=== PATIENT | male | born 1975 ===

== ENCOUNTER 2016-02-25 23:23 | Emergency (ER) | payer OTHER, SELFPAY ==
[2016-02-25] MEDS ORDERED: Ketorolac Tromethamine 30 MG/ML VIAL ONE (23:37)
[2016-02-25 23:57] LABS: Red Blood Cell (RBC) Count 5.22 mill/uL (4.70-6.10)
[2016-02-26 00:03] LABS: Anion Gap 16 mmol/L (10-20); BUN (Urea Nitrogen) 14 mg/dL (8.9-20.6); Calc. Creatinine Clearance 0 mL/min (70-130); Calcium 9.7 mg/dL (7.8-10.44); Carbon Dioxide 25 mmol/L (22-29); Chloride 106 mmol/L (98-107); Estimated GFR-MDRD Greater than 90
[2016-02-26 00:04] LABS: Acetaminophen Less than 3.0 mcg/mL (10.0-30.0); Salicylate Less than 5.0 mg/dL (15.0-30.0)
[2016-02-26 00:21] LABS: Neutrophil 34 % (42-75)
[2016-02-26 01:33] LABS: Blood, Urine Negative (Negative); Glucose, Urine (Dipstick) Negative (Negative); Ketone, Urine Trace mg/dL (Negative); Nitrite Negative (Negative); Protein, Urine (Dipstick) 30 mg/dL (Neg-Trace); Urobilinogen 0.2 mg/dL (0.2-1.0)
[2016-02-26 01:34] LABS: Bilirubin Negative (Negative)
[2016-02-26 01:40] LABS: Methadone Not Detected (NotDetected); Methamphetamine Not Detected (NotDetected)
[2016-02-26 01:44] LABS: RBC/HPF None Seen HPF (0-3); Squamous Epithelial 0-3 HPF (0-3); WBC/HPF 0-3 HPF (0-3)
--- NOTE | 2016-02-26 02:50 | ERRECORD ---
[facility] EMERGENCY RECORD HPI ALCOHOL ABUSE/SUBSTANCE ABUSE (23:29 RW) CHIEF COMPLAINT: Patient presents for evaluation of inappropriate behavior, found by police, Patient presents for evaluation of "unresponsive sitting in car". HISTORIAN: History provided by patient, Additional history obtained from EMS, Pt states "I had a seizure". appears heavily sedated, requesting pain meds. ?ETOH on board. LOCATION: Symptoms are generalized. QUALITY: Unable to describe the quality of the pain. SEVERITY: Maximum severity of symptoms mild, Currently symptoms are mild, Maximum severity of pain rated as 9/10, Current severity of pain rated as 9/10. GCS: Eye opening: (4) - Spontaneous, Verbal: (5) - Oriented/conversive, Motor: (6) - Obeys commands/Spontaneous, GCS Total: 15. TIME COURSE: Patient unable to describe onset of symptoms, Symptoms are improving. CONTRIBUTING: depression, [facility]", many are sedatives and psychotropics. ASSOCIATED WITH: Denies any other complaints. EXACERBATED BY: Patient's condition exacerbated by alcohol abuse, Patient's condition exacerbated by financial issues, Patient's condition exacerbated by personal problems, Patient's condition exacerbated by homeless. RELIEVED BY: Patient's condition relieved by nothing. E/M CAVEAT: Emergency room caveat invoked due to intoxicated patient. ROS (23:33 [facility]) CONSTITUTIONAL: Negative constitutional review of systems. EYES: Negative eye review of systems. ENT: Negative ears, nose, throat review of systems. CARDIOVASCULAR: Negative cardiovascular review of systems. RESPIRATORY: Negative respiratory review of systems. GI: Negative gastrointestinal review of systems. GENITOURINARY MALE: Negative genitourinary review of systems. MUSCULOSKELETAL: Historian reports arthralgias, Hx "Ankylosing Spondylitis". SKIN: Historian reports skin lesions, ?track rocha on arms. NEUROLOGIC: Historian reports lethargy. ENDOCRINE: Negative endocrine review of systems. HEMO/LYMPHATIC: Normal hematologic/lymphatic system review. ALLERGIC/IMMUNOLOGIC: Normal allergy/immunologic system review. PSYCHIATRIC: Historian reports alcohol abuse, reports anxiety, reports depression, reports drug abuse, denies emotional lability, denies hallucinations, denies homicidal ideation, denies memory loss, denies suicidal ideation. NOTES: All systems reviewed, negative except as described above. &a-1R&a+25V*p+0X*[id number]*c202B*c15G*c2P*p-0X&a-25V&a+1R Name: Ayah Hill : 1975 M40 MedRec: [id number] AcctNum: [id number] Prepared: TueFeb 26, 2016 05:46 by Interface Page 1 of 3 pMD [facility] EMERGENCY RECORD PAST MEDICAL HISTORY MEDICAL HISTORY: Notes: Sargent's Disease, Migraines, Seizures, Chronic pain, "spinalitus", Flu vaccine not up to date, Tetanus not up to date, Past medical history includes history of hypertension. 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 (23:27 PGRI) PSYCHIATRIC HISTORY: Psychiatric history includes, anxiety, bipolar disorder, depression. (23:27 PGRI) SOCIAL HISTORY: Social History includes PATIENT DENIES BUT FREQ DROWSY AND TRACK ROCHA SEEN ON PATIENTS ARMS AND LEGS. (TueFeb 26, 2016 00:59 PGRI) KNOWN ALLERGIES No Known Allergies CURRENT MEDICATIONS No recorded medications VITAL SIGNS VITAL SIGNS: BP: 131/93, Pulse: 105, Resp: 18 (Non-Labored), Temp: 97.6 (Axillary), Pain: 9, O2 sat: 98 on Room Air, Time: 02/25/2016 23:25. (23:25 PGRI) BP: 105/70, Pulse: 77, Resp: 15, O2 sat: 99 on Room Air, Time: 02/26/2016 00:40. (TueFeb 26, 2016 00:40 PGRI) BP: 116/75, Pulse: 93, Resp: 14, Pain: sleeping, O2 sat: 99 on Room Air, Time: 02/26/2016 02:04. (TueFeb 26, 2016 02:04 PGRI) PHYSICAL EXAM (23:35 RWAG) CONSTITUTIONAL: Vital signs reviewed, Patient alert and oriented to person, place and time. HEAD: Head exam normal. EYES: Eye exam included findings of eyelids normal to inspection, Pupils not equally round and reactive to light, pupils equal,small, sluggish, appears narcotized. NECK: Neck exam normal. RESPIRATORY CHEST: Respiratory and chest exam normal. CARDIOVASCULAR: Cardiovascular assessment normal. ABDOMEN MALE: Abdominal exam normal. GENITOURINARY MALE: External genitalia normal. BACK: Back exam normal. UPPER EXTREMITY: Upper extremity exam normal. LOWER EXTREMITY: Lower extremity exam normal. NEURO: [place] coma scale 15, Neuro exam findings include patient oriented to person, place and time. SKIN: ? track rocha on arms ?skin popping. LYMPHATIC: Lymphatic exam normal. &a-1R&a+25V*p+0X*[id number]*c202B*c15G*c2P*p-0X&a-25V&a+1R Name: Ayah Hill : 1975 M40 MedRec: [id number] AcctNum: [id number] Prepared: TueFeb 26, 2016 05:46 by Interface Page 2 of 3 pMD [facility] EMERGENCY RECORD PSYCHIATRIC: Psychiatric exam included findings of patient oriented to person place and time, No suicidal ideations, No homicidal ideations. MEDICATION ADMINISTRATION SUMMARY Drug Name: ketorolac injection, Dose Ordered: 30 mg, Route: IV Push, Status: Held, Time: 00:09 02/26/2016, Drug Name: *sodium chloride 0.9 % intravenous, Dose Ordered: 1 L, Route: IV Fluid Infusion, Status: Given, Time: 00:07 02/26/2016, *Additional information available in notes, Detailed record available in Medication Service section. PROBLEM LIST No recorded problems DIAGNOSIS (TueFeb 26, 2016 02:07 RW) FINAL: PRIMARY: methamphetamine abuse. PRESCRIPTION No recorded prescriptions DISPOSITION PATIENT: Disposition Type: Discharge, Disposition: *Discharge Home, Disposition Transport: Car, Condition: Improved. (TueFeb 26, 2016 02:07 RWAG) Patient left the department. (TueFeb 26, 2016 02:43 MVIL) Johnson: DENISEIL=PEDRO Ball, Claire SUTHERLANDI=PEDRO Shrestha, Nery RWAG=MD Griffin, Kyle &a-1R&a+25V*p+0X*[id number]*c202B*c15G*c2P*p-0X&a-25V&a+1R Name: Ayah Hill : 1975 M40 MedRec: [id number] AcctNum: [id number] Prepared: Nicole Feb 26, 2016 05:46 by Interface Page 3 of 3 pMD MTDD
--- NOTE | 2016-02-26 03:02 | PICIS ---
[facility] EMERGENCY RECORD TRIAGE (TueFeb 25, 2016 23:25 PGRI) TRIAGE NOTES: Patient states "conscious seizure" at [facility] after falling asleep. Hx of PTSD and chronic pain. (TueFeb 25, 2016 23:25 PGRI) PATIENT: NAME: Ayah Hill, AGE: 40, GENDER: male, : Tue1975, TIME OF GREET: TueFeb 25, 2016 23:24, PREFERRED LANGUAGE: Czech, ECODE BILLING MAP: [facility], Zip Code: [address], KG WEIGHT: 77.11, , , PERSON ID: [id number], PCP: CORTNEY. (TueFeb 25, 2016 23:25 PGRI) PHONE: . (TueFeb 26, 2016 00:24) PAYMENT: [employer] Program. (TueFeb 26, 2016 00:37) COMPLAINT: Seizure. (TueFeb 25, 2016 23:25 PGRI) ADMISSION: URGENCY: 3 Urgent, ADMISSION SOURCE: Other, TRANSPORT: AMBULANCE - [facility], BED: TRIAGE. (TueFeb 25, 2016 23:25 PGRI) PROVIDERS: TRIAGE NURSE: Nery Shrestha RN. (TueFeb 25, 2016 23:25 PGRI) VITAL SIGNS: BP 131/93, Pulse 105, Resp 18, (Non-Labored), Temp 97.6, (Axillary), Pain 9, O2 Sat 98, on Room Air, Time 02/25/2016 23:25. (23:25 PGRI) KNOWN ALLERGIES No Known Allergies CURRENT MEDICATIONS No recorded medications VITAL SIGNS VITAL SIGNS: BP: 131/93, Pulse: 105, Resp: 18 (Non-Labored), Temp: 97.6 (Axillary), Pain: 9, O2 sat: 98 on Room Air, Time: 02/25/2016 23:25. (23:25 PGRI) BP: 105/70, Pulse: 77, Resp: 15, O2 sat: 99 on Room Air, Time: 02/26/2016 00:40. (TueFeb 26, 2016 00:40 PGRI) BP: 116/75, Pulse: 93, Resp: 14, Pain: sleeping, O2 sat: 99 on Room Air, Time: 02/26/2016 02:04. (TueFeb 26, 2016 02:04 PGRI) NURSING ASSESSMENT: SEIZURE (TueFeb 26, 2016 00:13 MVIL) NURSING DIAGNOSIS: Nursing diagnosis: SEIZURE, Notes: PER EMS, EMS WAS CALLED BY POLICE. REPORTED THAT PATIENT WAS UNRESPONSIVE IN HIS CAR. WHEN PATIENT WOKE, HE STATED HE HAD A SEIZURE. CONSTITUTIONAL: Patient arrives, via stretcher, via [facility], Unsteady gait, Inability to ambulate, History obtained from patient, Patient appears comfortable, Patient cooperative, Patient, responsive to verbal stimuli, Oriented to person, place and time, Skin warm, Skin dry, Skin normal in color, Mucous membranes pink, Mucous membranes moist, Patient, poorly groomed, with poor personal hygiene, improperly dressed for the weather, Patient complains of UNRESPONSIVE. &a-1R&a+25V*p+0X*w9124V*c202B*c15G*c2P*p-0X&a-25V&a+1R Name: Ayah Hill : 1975 M40 MedRec: [id number] AcctNum: [id number] Prepared: TueFeb 26, 2016 05:51 by Interface Page 1 of 9 pMD [facility] EMERGENCY RECORD SEIZURE: Seizure assessment findings include patient not actively seizing, Patient not post-ictal currently, History of seizures, Notes: LAST SEIZURE WAS 6YRS AGO. SAFETY: Side rails up, Cart/Stretcher in lowest position, Call light within reach, Hospital ID band on. NURSING PROCEDURE: DISCHARGE NOTE (TueFeb 26, 2016 02:26 MVIL) DISCHARGE: Patient discharged to home, ambulating without assistance, transported via police, accompanied by law enforcement, Summary of Care printed/ provided, Patient requested and was provided an electronic copy of Discharge Instructions, Transition record given to patient, Discharge instructions given to patient, Above person(s) verbalized understanding of discharge instructions and follow-up care. BELONGINGS: Belongings and valuables with patient at time of discharge include:. NURSING PROCEDURE: IV (TueFeb 26, 2016 00:09 MVIL) PATIENT IDENITIFIER: Patient actively involved in identification process, Patient's identity verified by patient stating name, Patient's identity verified by hospital ID bracelet. IV SITE 1: IV therapy indicated for hydration, IV therapy indicated for medication administration, IV established, to the left foot, using a 20 gauge catheter, in three attempts, Saline lock established, Flushed with normal saline (mls): 10, Labs drawn at time of placement, labeled in the presence of the patient and sent to lab. FOLLOW-UP SITE 1: After procedure, IV line connections checked and properly labeled, After procedure, no drainage at IV site, After procedure, no swelling at IV site, After procedure, no redness at IV site. NURSING PROCEDURE: NURSE NOTES NURSES NOTES: Notes: patient sleeping in bed at this time. holding pain medication now. RR even and unlabored. (TueFeb 26, 2016 00:31 PGRI) Notes: pt resting in bed RR even and unlabored. all needs met at this time. awaiting disposition from [facility]. (TueFeb 26, 2016 01:42 PGRI) Notes: ems states to call [facility] [phone] ext [phone] when patient is to be discharged in order for them to pick him up. (TueFeb 26, 2016 00:15 PGRI) Notes: patient will be discharged. called phone number and [facility] Bob to come pick patient up at this time. pt still resting in bed RR even and unlabored. easily aroused. (TueFeb 26, 2016 02:18 PGRI) NURSING PROCEDURE: URINE COLLECTION (TueFeb 26, 2016 01:16 PGRI) PATIENT IDENTIFIER: Patient actively involved in identification process, Patient's identity verified by patient stating name, Patient's identity verified by patient stating date. &a-1R&a+25V*p+0X*c6445Q*c202B*c15G*c2P*p-0X&a-25V&a+1R Name: Ayah Hill : 1975 M40 MedRec: [id number] AcctNum: [id number] Prepared: TueFeb 26, 2016 05:51 by Interface Page 2 of 9 pMD [facility] EMERGENCY RECORD URINE COLLECTION MALE: Urine collected by void, output amount (mL) 50, urine timothy in color, and clear, Specimen labeled in the presence of the patient and sent to lab, Specimen obtained for culture labeled in the presence of the patient and sent to lab. SAFETY: Side rails up, Cart/Stretcher in lowest position, Family at bedside, Call light within reach, Hospital ID band on. ORDER DETAILS Order Name: Alcohol, Status: Active, Time: 23:29 02/25/2016, User: SAUNDRA, - Ordered for: MD Moya Richard, - Entered by: MD Moya Richard - TueFeb 25, 2016 23:29, - Quantity: 1, Order Name: Basic Metabolic Panel, Status: Active, Time: 23:27 02/25/2016, User: SAUNDRA, - Ordered for: MD Moya Richard, - Entered by: MD Moya Richard - TueFeb 25, 2016 23:27, - Quantity: 1, Order Name: CBC with Differential, Status: Active, Time: 23:27 02/25/2016, User: SAUNDRA, - Ordered for: MD Moya Richard, - Entered by: MD Griffin, Kyle - TueFeb 25, 2016 23:27, - Quantity: 1, Order Name: Drug Screen, Serum, Status: Active, Time: 23:27 02/25/2016, User: SAUNDRA, - Ordered for: MD Moya Richard, - Entered by: MD Griffin, Kyle - TueFeb 25, 2016 23:27, - Quantity: 1, Order Name: Drug Screen, Urine, Status: Active, Time: 23:27 02/25/2016, User: SAUNDRA, - Ordered for: MD Moya Richard, - Entered by: MD Griffin, Kyle - TueFeb 25, 2016 23:27, - Quantity: 1, Order Name: SALINE LOCK, Status: Done, Time: 00:09 02/26/2016, User: MENG, - Ordered for: MD Moya Richard, - Entered by: MD Moya Richard - TueFeb 25, 2016 23:27, - Quantity: 1, Order Name: Urinalysis w/ Rflx Microscopic, Status: Active, Time: 23:27 02/25/2016, User: SAUNDRA, - Ordered for: MD Moya Richard, - Entered by: MD Moya Richard - TueFeb 25, 2016 23:27, - Quantity: 1. MEDICATION ADMINISTRATION SUMMARY Drug Name: ketorolac injection, Dose Ordered: 30 mg, Route: IV Push, Status: Held, Time: 00:09 02/26/2016, Drug Name: *sodium chloride 0.9 % intravenous, Dose Ordered: 1 L, &a-1R&a+25V*p+0X*c0192G*c202B*c15G*c2P*p-0X&a-25V&a+1R Name: Ayah Hill : 1975 M40 MedRec: [id number] AcctNum: [id number] Prepared: TueFeb 26, 2016 05:51 by Interface Page 3 of 9 pMD [facility] EMERGENCY RECORD Route: IV Fluid Infusion, Status: Given, Time: 00:07 02/26/2016, *Additional information available in notes, Detailed record available in Medication Service section. MEDICATION SERVICE ketorolac injection: Order: ketorolac injection (ketorolac tromethamine) - Dose: 30 mg : IV Push Schedule: Now Ordered by: Kyle Moya MD Entered by: Kyle Moya MD [facility] Feb 25, 2016 23:28 , Acknowledged by: Nery Shrestha RN TueFeb 25, 2016 23:36, Held by: Nery Shrestha RN [facility] Feb 26, 2016 00:09 Reason: PATIENT ASLEEP. sodium chloride 0.9 % intravenous: Order: sodium chloride 0.9 % intravenous (0.9 % sodium chloride) - Dose: 1 L : IV Fluid Infusion Schedule: Now Notes: (Bolus) Ordered by: Kyle Moya MD Entered by: Kyle Moya MD TueFeb 25, 2016 23:27 , Acknowledged by: Nery Shrestha RN TueFeb 25, 2016 23:27 Documented as given by: Nery Shrestha RN [facility] Feb 26, 2016 00:07 Patient, Medication, Dose, Route and Time verified prior to administration. IV SITE #1 IV fluids established for hydration, IV SITE #1 into left foot, IV SITE #1 1st bag hung, amount 1 Liter hung, IV SITE #1 bolus of 1000 ml established, via primary tubing, via pump tubing, Slightly drowsey, easily aroused-acceptable, Catheter placement confirmed via flush prior to administration, IV site without signs or symptoms of infiltration during medication administration, No swelling during administration, No drainage during administration, IV flushed after administration, Correct patient, time, route, dose and medication confirmed prior to administration, Patient advised of actions and side-effects prior to administration, Allergies confirmed and medications reviewed prior to administration, Patient in position of comfort, Side rails up, Cart in lowest position, Family at bedside, Call light in reach. : Follow Up : Response assessment performed, No signs or symptoms of allergic reaction noted, _IV SITE #1:_, IV fluid infusion discontinued, on TueFeb 26, 2016 01:00, 55 minutes, ., Total amount infused: 1000ml, Advised not to ambulate without assistance, Patient in position of comfort, Side rails up, Cart in lowest position, Family at bedside. (TueFeb 26, 2016 01:20 PGRI) HPI ALCOHOL ABUSE/SUBSTANCE ABUSE (23:29 RW) CHIEF COMPLAINT: Patient presents for evaluation of inappropriate behavior, found by police, Patient presents for evaluation of "unresponsive sitting in car". HISTORIAN: History provided by patient, Additional history obtained from EMS, Pt states "I had a seizure". &a-1R&a+25V*p+0X*n0002M*c202B*c15G*c2P*p-0X&a-25V&a+1R Name: Ayah Hill : 1975 M40 MedRec: [id number] AcctNum: [id number] Prepared: TueFeb 26, 2016 05:51 by Interface Page 4 of 9 pMD [facility] EMERGENCY RECORD appears heavily sedated, requesting pain meds. ?ETOH on board. LOCATION: Symptoms are generalized. QUALITY: Unable to describe the quality of the pain. SEVERITY: Maximum severity of symptoms mild, Currently symptoms are mild, Maximum severity of pain rated as 9/10, Current severity of pain rated as 9/10. GCS: Eye opening: (4) - Spontaneous, Verbal: (5) - Oriented/conversive, Motor: (6) - Obeys commands/Spontaneous, GCS Total: 15. TIME COURSE: Patient unable to describe onset of symptoms, Symptoms are improving. CONTRIBUTING: depression, [facility] many are sedatives and psychotropics. ASSOCIATED WITH: Denies any other complaints. EXACERBATED BY: Patient's condition exacerbated by alcohol abuse, Patient's condition exacerbated by financial issues, Patient's condition exacerbated by personal problems, Patient's condition exacerbated by homeless. RELIEVED BY: Patient's condition relieved by nothing. E/M CAVEAT: Emergency room caveat invoked due to intoxicated patient. ROS (23:33 RWAG) CONSTITUTIONAL: Negative constitutional review of systems. EYES: Negative eye review of systems. ENT: Negative ears, nose, throat review of systems. CARDIOVASCULAR: Negative cardiovascular review of systems. RESPIRATORY: Negative respiratory review of systems. GI: Negative gastrointestinal review of systems. GENITOURINARY MALE: Negative genitourinary review of systems. MUSCULOSKELETAL: Historian reports arthralgias, Hx "Ankylosing Spondylitis". SKIN: Historian reports skin lesions, ?track rocha on arms. NEUROLOGIC: Historian reports lethargy. ENDOCRINE: Negative endocrine review of systems. HEMO/LYMPHATIC: Normal hematologic/lymphatic system review. ALLERGIC/IMMUNOLOGIC: Normal allergy/immunologic system review. PSYCHIATRIC: Historian reports alcohol abuse, reports anxiety, reports depression, reports drug abuse, denies emotional lability, denies hallucinations, denies homicidal ideation, denies memory loss, denies suicidal ideation. NOTES: All systems reviewed, negative except as described above. PAST MEDICAL HISTORY MEDICAL HISTORY: Notes: [place]'s Disease, Migraines, Seizures, Chronic pain, "spinalitus", Flu vaccine not up to date, Tetanus not up to date, Past medical history includes history of hypertension. (23:27 PGRI) MALE SURGICAL HISTORY: Back surgery X2, Ankle sx, Head &a-1R&a+25V*p+0X*i3246K*c202B*c15G*c2P*p-0X&a-25V&a+1R Name: Ayah Hill : 1975 M40 MedRec: [id number] AcctNum: [id number] Prepared: TueFeb 26, 2016 05:51 by Interface Page 5 of 9 pMD [facility] EMERGENCY RECORD surgery, "something on my pituitary", Collar bone sx,, Surgical history of appendectomy, Surgical history of cholecystectomy. (23:27 PGRI) PSYCHIATRIC HISTORY: Psychiatric history includes, anxiety, bipolar disorder, depression. (23:27 PGRI) SOCIAL HISTORY: Social History includes PATIENT DENIES BUT FREQ DROWSY AND TRACK ROCHA SEEN ON PATIENTS ARMS AND LEGS. (TueFeb 26, 2016 00:59 PGRI) PHYSICAL EXAM (23:35 RWAG) CONSTITUTIONAL: Vital signs reviewed, Patient alert and oriented to person, place and time. HEAD: Head exam normal. EYES: Eye exam included findings of eyelids normal to inspection, Pupils not equally round and reactive to light, pupils equal,small, sluggish, appears narcotized. NECK: Neck exam normal. RESPIRATORY CHEST: Respiratory and chest exam normal. CARDIOVASCULAR: Cardiovascular assessment normal. ABDOMEN MALE: Abdominal exam normal. GENITOURINARY MALE: External genitalia normal. BACK: Back exam normal. UPPER EXTREMITY: Upper extremity exam normal. LOWER EXTREMITY: Lower extremity exam normal. NEURO: Nathalia coma scale 15, Neuro exam findings include patient oriented to person, place and time. SKIN: ? track rocha on arms ?skin popping. LYMPHATIC: Lymphatic exam normal. PSYCHIATRIC: Psychiatric exam included findings of patient oriented to person place and time, No suicidal ideations, No homicidal ideations. EVENTS TRANSFER: Triage to Emergency Triage. (23:25 PGRI) Emergency Triage to Emergency Room -04. (23:25 PGRI) Removed from Emergency Emergency Room -04. (TueFeb 26, 2016 02:43 MVIL) PROBLEM LIST No recorded problems DIAGNOSIS (TueFeb 26, 2016 02:07 RW) FINAL: PRIMARY: methamphetamine abuse. DISPOSITION PATIENT: Disposition Type: Discharge, Disposition: *Discharge Home, Disposition Transport: Car, Condition: Improved. (TueFeb 26, 2016 02:07 RWAG) Patient left the department. (TueFeb 26, 2016 02:43 MVIL) &a-1R&a+25V*p+0X*c6760C*c202B*c15G*c2P*p-0X&a-25V&a+1R Name: SergioAyah Maria Del Carmen : 1975 M40 MedRec: [id number] AcctNum: [id number] Prepared: TueFeb 26, 2016 05:51 by Interface Page 6 of 9 pMD [facility] EMERGENCY RECORD INSTRUCTION (TueFeb 26, 2016 02:08 RW) DISCHARGE: METHAMPHETAMINE ABUSE. FOLLOWUP: Follow up with Primary Care Physician in 5 days. SPECIAL: Follow-up with your PCP. PRESCRIPTION No recorded prescriptions IMAGING (TueFeb 26, 2016 02:25 MVIL) *DISCHARGE INSTRUCTIONS RECEIPT: Image captured from scanner. *SUPPLY CHARGE SHEET: Image captured from scanner. ADMIN (TueFeb 26, 2016 05:40 [facility]) DIGITAL SIGNATURE: MD Moya Richard. RESULTS LABORATORY: CBC with Differential Collection DT: TueFeb 25, 2016 23:46, White Blood Cell (WBC) Count 5.0 thou/uL, Range (4.8-10.8), Red Blood Cell (RBC) Count 5.22 mill/uL, Range (4.70-6.10), Hemoglobin 16.2 g/dL, Range (14.0-18.0), Hematocrit 49.0 %, Range (42.0-52.0), Mean Corpuscular Volume 94.0 fl, Range (80.0-94.0), Mean Corpuscular Hemoglobin 31.0 pg, Range (27.0-31.0), Mean Corpuscular HGB CONC 33.0 g/dL, Range (32.0-36.0), RBC Distribution Width 11.7 %, Range (11.5-14.5), Platelet Count 229 thou/uL, Range (130-400), *Mean Platelet Volume 6.0 - L fL, Range (7.4-10.4). (TueFeb 26, 2016 00:02 [facility]) Drug Screen, Blood Collection DT: TueFeb 25, 2016 23:46, *Acetaminophen Less than 3.0 - L mcg/mL, Range (10.0-30.0), Therapeutic Range: 10.0 - 30.0 ug/mL Toxic Range: Possible, toxicity: 150 - 200 ug/mL Probable toxicity: Greater than 200, ug/mL *IMPORTANT TESTING INFORMATION* The half-life of NAC is 2, hours. The total NAC clearance is 5.6 hours for adults and 11 hours for, Newborns. Testing acetaminophen levels prior to a reasonable time frame, for clearance can cause falsely decreased acetaminophen levels. , Alcohol Less than 10 mg/dL, Range (Less than 10), The pharmacological response to blood alcohol levels may vary from, individual to individual. Negative: Less than 10, mg/dL Toxic: 50 - 100 mg/dL &a-1R&a+25V*p+0X*n7630L*c202B*c15G*c2P*p-0X&a-25V&a+1R Name: Ayah Hill : 1975 M40 MedRec: [id number] AcctNum: [id number] Prepared: TueFeb 26, 2016 05:51 by Interface Page 7 of 9 pMD [facility] EMERGENCY RECORD , Depression of FURNITURE UPHOLSTERER APPRENTICE: Greater than 100 mg/dL , Fatalities reported: Greater than 400 mg/dL , *Salicylate Less than 5.0 - L mg/dL, Range (15.0-30.0). (TueFeb 26, 2016 00:11 RW) Alcohol Collection DT: TueFeb 25, 2016 23:46, Alcohol Less than 10 mg/dL, Range (Less than 10), The pharmacological response to blood alcohol levels may vary from, individual to individual. Negative: Less than 10, mg/dL Toxic: 50 - 100 mg/dL , Depression of FURNITURE UPHOLSTERER APPRENTICE: Greater than 100 mg/dL , Fatalities reported: Greater than 400 mg/dL . (TueFeb 26, 2016 00:11 RW) Basic Metabolic Panel Collection DT: TueFeb 25, 2016 23:46, Sodium 143 mmol/L, Range (136-145), Potassium 3.6 mmol/L, Range (3.5-5.1), Chloride 106 mmol/L, Range (98-107), Carbon Dioxide 25 mmol/L, Range (22-29), Anion Gap 16 mmol/L, Range (10-20), BUN (Urea Nitrogen) 14 mg/dL, Range (8.9-20.6), Creatinine 0.79 mg/dL, Range (0.7-1.3), Estimated GFR-MDRD Greater than 90 , Reference Range for Estimated GFR: Greater than 90, mL/min/1.73 m2 NOTE: The MDRD equation has not been validated for use, with the elderly (over 70 years of age), women, patients with, serious comorbid condition or persons with extremes of body size, muscle, mass, or nutritional status. , Glucose 82 mg/dL, Range (70-105), Calcium 9.7 mg/dL, Range (7.8-10.44). (TueFeb 26, 2016 00:11 RW) CBC with Differential Collection DT: TueFeb 25, 2016 23:46, White Blood Cell (WBC) Count 5.0 thou/uL, Range (4.8-10.8), Red Blood Cell (RBC) Count 5.22 mill/uL, Range (4.70-6.10), Hemoglobin 16.2 g/dL, Range (14.0-18.0), Hematocrit 49.0 %, Range (42.0-52.0), Mean Corpuscular Volume 94.0 fl, Range (80.0-94.0), Mean Corpuscular Hemoglobin 31.0 pg, Range (27.0-31.0), Mean Corpuscular HGB CONC 33.0 g/dL, Range (32.0-36.0), RBC Distribution Width 11.7 %, Range (11.5-14.5), Platelet Count 229 thou/uL, Range (130-400), &a-1R&a+25V*p+0X*i3671H*c202B*c15G*c2P*p-0X&a-25V&a+1R Name: Ayah Hill : 1975 10 MedRec: [id number] AcctNum: [id number] Prepared: TueFeb 26, 2016 05:51 by Interface Page 8 of 9 pMD [facility] EMERGENCY RECORD *Mean Platelet Volume 6.0 - L fL, Range (7.4-10.4), *Neutrophil 34 - L %, Range (42-75), *Lymphocytes 56 - H %, Range (21-51), Monocytes 5 %, Range (0-10), Eosinophils 5 %, Range (0-10), PLT Morphology Comment Appears Adequate , RBC Morphology Normal . (TueFeb 26, 2016 00:57 RWAG) Johnson: MVIL=PEDRO Ball, Claire PGRI=PEDRO Shrestha, Nery RWAG=MD Griffin, Kyle &a-1R&a+25V*p+0X*t6017B*c202B*c15G*c2P*p-0X&a-25V&a+1R Name: Ayah Hill : 1975 M40 MedRec: [id number] AcctNum: [id number] Prepared: TueFeb 26, 2016 05:51 by Interface Page 9 of 9 pMD [facility] MEDICATION RECONCILIATION You were seen in the Emergency Department on: TueFeb 25, 2016 KNOWN ALLERGIES No Known Allergies MEDICATIONS GIVEN WHILE IN THE EMERGENCY DEPARTMENT sodium chloride 0.9 % intravenous (0.9 % sodium chloride) - Dose: 1 liter(s) : IV Fluid Infusion Notes from the emergency department Reviewed with patient Reviewed with patient &a-1R&a+25V*p+0X*r1805R*c202B*c15G*c2P*p-0X&a-25V&a+1R Name: Ayah Hill : 1975 M40 MedRec: [id number] AcctNum: [id number] Prepared: TueFeb 26, 2016 05:51 by Interface Alvaro HERRERA
== END 2016-02-26 02:24 | disposition home or self-care (01) ==
LOC: BURERS 23:23
DX: F15.10 Other stimulant abuse, uncomplicated (principal); G43.909 Migraine, unspecified, not intractable, without status migrainosus; I10 Essential (primary) hypertension; F31.9 Bipolar disorder, unspecified; F32.9 Major depressive disorder, single episode, unspecified; F41.9 Anxiety disorder, unspecified
CPT/HCPCS: 80048; 80306; 80307; 81003; 81015; 85025; 99284; J1885